=== PATIENT | female | born 1970 | race Caucasian/White ===

== ENCOUNTER 2018-10-05 11:54 | Emergency (ER) | payer OTHER ==
[~2018-10-05] VITALS: Ht 160 cm; Wt 81.6 kg
[~2018-10-05 11:54] MED LIST: LABETALOL HCL200 MG PO; SYNTHROID300 MCG PO
[2018-10-05] MEDS ORDERED: ATORVASTATIN CA20 MG PO (12:23)
[2018-10-05] MEDS ORDERED: LOSARTAN POTASS50 MG PO (12:23)
[2018-10-05] MEDS ORDERED: LEVOTHYROXINE125 MCG PO (12:23)
[2018-10-05] MEDS ORDERED: FLONASE ALLERG9.9 ML NAS (12:48)
== END 2018-10-05 13:03 | disposition home or self-care (01) ==
LOC: ED 11:54
DX: J30.2 Other seasonal allergic rhinitis (principal); H69.83 Other specified disorders of Eustachian tube, bilateral; E03.9 Hypothyroidism, unspecified; I10 Essential (primary) hypertension; Z87.891 Personal history of nicotine dependence; Z88.5 Allergy status to narcotic agent; Z79.899 Other long term (current) drug therapy
CPT/HCPCS: 99283